=== PATIENT | male | born 1980 | race Two or more races ===

== ENCOUNTER 2024-02-04 16:17 | Emergency (ER) | payer MEDICAID, OTHER ==
[~2024-02-04] VITALS: Ht 170.2 cm; Wt 88.6 kg
[2024-02-04] MEDS ORDERED: AUG875T PO (16:41)
[2024-02-04] MEDS ORDERED: PSEU1TAB PO (16:42)
[2024-02-04 17:45] VITALS: BP 122/81; PULSE 99; RESP 20; O2SAT 98
== END 2024-02-04 19:53 | disposition home or self-care (01) ==
LOC: EDBD 16:17 → ER 16:17
DX: J32.9 Chronic sinusitis, unspecified (principal); Z79.899 Other long term (current) drug therapy